=== PATIENT | female | born 2000 | race Caucasian/White ===

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

== ENCOUNTER 2021-01-05 13:07 | Emergency (ER) | payer SELFPAY ==
[2021-01-05 13:39] LABS: BILIRUBIN,URINE NEGATIVE (NEGATIVE); GLUCOSE, URINE (UA) NEGATIVE (NEGATIVE); KETONES,URINE (UA) NEGATIVE (NEGATIVE); LEUKOCYTE ESTERASE, URINE NEGATIVE (NEGATIVE); NITRITE,URINE POSITIVE (NEGATIVE); OCCULT BLOOD,URINE NEGATIVE (NEGATIVE); PH,URINE 6.5 PH (5.0-7.5); PROTEIN,URINE NEGATIVE (NEGATIVE); UROBILINOGEN,URINE 1 (NORMAL) E.U./dL (NORMAL)
[2021-01-05 13:40] LABS: CLARITY,URINE CLEAR (CLEAR)
--- NOTE | 2021-01-05 13:40 | ED Physician Documentation ---
History of Present Illness - Stated complaint Stated Complaint: FEMALE - Chief complaint Chief Complaint: UTI - History obtained from History obtained from: Patient - History of Present Illness Timing: How many days ago (3) Pain level max: 5 Pain level now: 5 - Additonal information Additional information: Patient is a 20-year-old female who presents to the emergency department stating she has had dysuria for the past 4 to 5 days. Emesis x1 yesterday. Pain in the mid to upper back bilaterally. Also right upper quadrant abdominal pain today. Worse with urination, nothing makes it better. Review of Systems Constitutional: denies: Fever, Chills Throat: denies: Sore throat Cardiac: denies: Chest pain / pressure Respiratory: denies: Cough, Hemoptysis, Wheezing : denies: Now EGA Skin: denies: Rash Musculoskeletal: denies: Neck pain, Back pain Neurologic: denies: Headache PD PAST MEDICAL HISTORY - Past Medical History Past Medical History: Yes Cardiovascular: None Respiratory: None Endocrine/Autoimmune: None GI: None : None HEENT: None Psych: Depression, Anxiety, Panic attacks Musculoskeletal: None Derm: None - Past Surgical History Past Surgical History: No - Present Medications Home Medications: Ambulatory Orders Medication Instructions Recorded Confirmed Cefdinir 300 mg PO BID #20 cap 01/05/21 Fluconazole [Diflucan] 1 tablet PO ONCE 1 Days #1 tablet 01/05/21 Ondansetron Odt [Zofran] 4 mg TL Q6H PRN #10 tablet 01/05/21 Phenazopyridine HCl [Pyridium] 200 mg PO TID PRN #6 tablet 01/05/21 - Allergies Allergies/Adverse Reactions: Allergies Allergy/AdvReac Type Severity Reaction Status Date / Time Sulfa (Sulfonamide AdvReac Hives Verified 01/05/21 13:21 Antibiotics) - Social History Does the pt smoke?: No Smoking Status: Never smoker Does the pt drink ETOH?: No Does the pt have substance abuse?: No - Immunizations Immunizations are current?: Yes PD ED PE NORMAL - Vitals Vital signs reviewed: Yes - General General: Alert and oriented X 3, No acute distress - HEENT HEENT: Moist mucous membranes - Neck Neck: Supple, no meningeal sign - Cardiac Cardiac: RRR - Respiratory Respiratory: No respiratory distress, Clear bilaterally - Abdomen Abdomen: Soft, Non distended, Other (Mild tender palpation right upper quadrant. No peritoneal signs.) - Female Female : Pt declined - Back Back: Other (Mild bilateral CVA tenderness, right greater than left) - Derm Derm: Warm and dry - Extremities Extremities: No edema - Neuro Neuro: Alert and oriented X 3 - Psych Psych: Normal mood, Normal affect Results - Vitals Vitals: Vital Signs - 24 hr 01/05/21 01/05/21 13:19 15:19 Temperature 36.6 C 36.8 C Heart Rate 97 84 Respiratory 16 16 Rate Blood Pressure 126/70 100/61 O2 Saturation 98 98 Oxygen O2 Source Room air - Labs Labs: Laboratory Tests 01/05/21 01/05/21 01/05/21 13:22 13:41 13:41 WBC 7.1 RBC 4.85 Hgb 15.3 Hct 45.9 MCV 94.6 MCH 31.5 H MCHC 33.3 RDW 12.7 Plt Count 209 MPV 11.0 H Neut # (Auto) 5.0 Lymph # (Auto) 1.6 [place] # (Auto) 0.5 Eos # (Auto) 0.1 Baso # (Auto) 0.0 Absolute Nucleated RBC 0.00 Nucleated RBC % 0.0 Sodium 136 Potassium 3.8 Chloride 104 Carbon Dioxide 23 Anion Gap 9.0 BUN 7 Creatinine 0.5 Estimated GFR (MDRD) 157 Glucose 107 H Calcium 9.2 Total Bilirubin 1.4 H AST 22 ALT 19 Alkaline Phosphatase 59 Total Protein 7.2 Albumin 4.3 Globulin 2.9 Albumin/Globulin Ratio 1.5 Lipase 31 Urine Color DARK YELLOW Urine Clarity CLEAR Urine pH 6.5 Ur Specific [place] 1.020 Urine Protein NEGATIVE Urine Glucose (UA) NEGATIVE Urine Ketones NEGATIVE Urine Occult Blood NEGATIVE Urine Nitrite POSITIVE H Urine Bilirubin NEGATIVE Urine Urobilinogen 1 (NORMAL) Ur Leukocyte Esterase NEGATIVE Urine RBC 0-5 Urine WBC 0-3 Ur Squamous Epith Cells MOD Squamous H Urine Bacteria Few Ur Microscopic Review INDICATED Urine Culture Comments NOT INDICATED Urine HCG, Qual NEGATIVE C. glabrata (PCR) C. krusei (PCR) Nano species DNA Chlam trachomat DNA PCR N.gonorrhoeae DNA (PCR) T. vaginalis (PCR) Bact Vaginosis (PCR) 01/05/21 01/05/21 13:49 13:49 WBC RBC Hgb Hct MCV MCH MCHC RDW Plt Count MPV Neut # (Auto) Lymph # (Auto) [place] # (Auto) Eos # (Auto) Baso # (Auto) Absolute Nucleated RBC Nucleated RBC % Sodium Potassium Chloride Carbon Dioxide Anion Gap BUN Creatinine Estimated GFR (MDRD) Glucose Calcium Total Bilirubin AST ALT Alkaline Phosphatase Total Protein Albumin Globulin Albumin/Globulin Ratio Lipase Urine Color Urine Clarity Urine pH Ur Specific [place] Urine Protein Urine Glucose (UA) Urine Ketones Urine Occult Blood Urine Nitrite Urine Bilirubin Urine Urobilinogen Ur Leukocyte Esterase Urine RBC Urine WBC Ur Squamous Epith Cells Urine Bacteria Ur Microscopic Review Urine Culture Comments Urine HCG, Qual C. glabrata (PCR) NEGATIVE C. krusei (PCR) NEGATIVE Nano species DNA POSITIVE A Chlam trachomat DNA PCR NEGATIVE N.gonorrhoeae DNA (PCR) NEGATIVE T. vaginalis (PCR) NEGATIVE NEGATIVE Bact Vaginosis (PCR) NEGATIVE - Rads (name of study) Right upper quadrant ultrasound Radiology: Prelim report reviewed, EMP read contemporaneously, See rad report (Prelim report from is technician. No acute abnormalities.) PD MEDICAL DECISION MAKING - ED course Complexity details: reviewed results, re-evaluated patient, considered differential, d/w patient ED course: 20-year-old female with symptoms consistent with possible pyelonephritis. Will start on antibiotics. A vaginal swab was also performed. This is positive for Nano and bacterial vaginitis. Flagyl and Diflucan were sent to the pharmacy as well. Patient is well-appearing, nontoxic. Afebrile. Denies any possibility of STD exposure. Patient counseled regarding signs and symptoms for which I believe and urgent re-evaluation would be necessary. Patient with good understanding of and agreement to plan and is comfortable going home at this time This document was made in part using voice recognition software. While efforts are made to proofread this document, sound alike and grammatical errors may occur. Departure - Departure Disposition: 01 Home, Self Care Clinical Impression: Pyelonephritis, Vaginal nano Condition: Good Instructions: ED Kidney Infec Female Follow-Up: your,doctor in 1 week if not better [Other] Prescriptions: Cefdinir 300 mg PO BID #20 cap Fluconazole [Diflucan] 1 tablet PO ONCE 1 Days #1 tablet Phenazopyridine HCl [Pyridium] 200 mg PO TID PRN #6 tablet PRN Reason: dysuria Ondansetron Odt [Zofran] 4 mg TL Q6H PRN #10 tablet PRN Reason: Nausea / Vomiting Comments: Your prescriptions were sent to [facility] in [place]. Please follow-up with your doctor for further care. Return if you worsen. Take all antibiotics until gone even if you are feeling better. If either of your swabs come back positive, we will call you and send a prescription to [facility] for you. Discharge Date/Time: 01/05/21 15:21
[2021-01-05 13:44] LABS: HCG UR QUAL NEGATIVE
[2021-01-05 13:46] LABS: BASOPHILS % (AUTO) 0.4 %; EOSINOPHILS # (AUTO) 0.1 10^3/uL (0.0-0.7); EOSINOPHILS % (AUTO) 0.8 %; HCT - HEMATOCRIT 45.9 % (37.0-47.0); HGB - HEMOGLOBIN 15.3 g/dL (12.0-16.0); LYMPHOCYTES # (AUTO) 1.6 10^3/uL (1.5-3.5); LYMPHOCYTES % (AUTO) 21.7 %; MEAN CORPUSCULAR HEMOGLOBIN 31.5 pg (27.0-31.0); MEAN CORPUSCULAR HGB CONC 33.3 g/dL (32.0-36.0); MEAN CORPUSCULAR VOLUME 94.6 fL (81.0-99.0); MONOCYTES # (AUTO) 0.5 10^3/uL (0.0-1.0); MONOCYTES % (AUTO) 6.3 %; NEUTROPHILS % (AUTO) 70.4 %; PLT - PLATELET COUNT 209 10^3/uL (130-450); RED BLOOD COUNT 4.85 10^6/uL (4.20-5.40); RED CELL DISTRIBUTION WIDTH 12.7 % (12.0-15.0); WHITE BLOOD COUNT 7.1 x10^3/uL (4.8-10.8)
[2021-01-05 13:51] LABS: RBC,URINE 0-5 /HPF (0-5); WBC,URINE 0-3 /HPF (0-5)
[2021-01-05 13:52] LABS: BACTERIA,URINE Few /HPF (None Seen); SQUAMOUS EPITHELIAL CELL,UR MOD Squamous (<= Few)
[2021-01-05 13:59] LABS: ALBUMIN 4.3 g/dL (3.2-5.5); ALBUMIN/GLOBULIN RATIO 1.5 (1.0-2.2); BILIRUBIN,TOTAL 1.4 mg/dL (0.2-1.0); CALCIUM 9.2 mg/dL (8.5-10.3); CREATININE 0.5 mg/dL (0.4-1.0); POTASSIUM 3.8 mmol/L (3.5-5.0); TOTAL PROTEIN 7.2 g/dL (6.7-8.2)
--- NOTE | 2021-01-05 14:47 | Ultrasound Report ---
PROCEDURE: Abdomen Limited INDICATIONS: RUQ pain, vomit TECHNIQUE: Real-time scanning was performed of the right upper quadrant, with image documentation. Color and pu lse Doppler interrogation was also performed of the hepatic and splenic vessels, or of the lesion of interest. COMPARISON: None. FINDINGS: Liver: Liver is normal in size and homogeneous in echotexture. Gallbladder: Is unremarkable appearance without wall thickening, pericholecystic fluid, or sonograph ic Collins sign. Biliary ducts: No intrahepatic biliary ductal dilatation. Extrahepatic bile duct is 2.5 mm in calib er. Normal biliary caliber is 6-7 mm or less, or 10 mm or less post-cholecystectomy. Spleen: Spleen is normal in size and homogeneous in echotexture. Pancreas: Visualized portions of the pancreas appear normal. Right Kidney: Right kidney is normal in size and echotexture. Right kidney measures 11.2 cm long. No hydronephrosis or nephrolithiasis. Mild prominence of the renal pelvis, likely within normal limits. No significant hydronephrosis. No solid renal masses. Miscellaneous: No free abdominal fluid. IMPRESSION: Unremarkable right upper quadrant ultrasound. Reviewed by: Devon Mock DO on 01/05/2021 1:46 PM NADIRA Approved by: Devon Mock DO on 01/05/2021 1:46 PM NADIRA Station ID: [id number]
[2021-01-05] MEDS ORDERED: cefTRIAXone 1 GM VIAL IVP STA (14:57)
[2021-01-05 15:20] VITALS: BP 100/61
[2021-01-05 15:40] LABS: BACTERIAL VAGINOSIS DNA NEGATIVE (NEGATIVE); CANDIDA GLABRATA DNA NEGATIVE (NEGATIVE); CANDIDA GROUP DNA POSITIVE (NEGATIVE); CANDIDA KRUSEI DNA NEGATIVE (NEGATIVE); TRICHOMONAS VAGINALIS DNA NEGATIVE (NEGATIVE)
[2021-01-05 16:29] LABS: CHLAMYDIA TRACHOMATIS DNA NEGATIVE (NEGATIVE); NEISSERIA GONORRHOEAE DNA NEGATIVE (NEGATIVE); TRICHOMONAS VAGINALIS DNA NEGATIVE (NEGATIVE)
== END 2021-01-05 15:21 | disposition home or self-care (01) ==
LOC: ED 13:07
DX: B37.3 Candidiasis of vulva and vagina (principal); N12 Tubulo-interstitial nephritis, not specified as acute or chronic
CPT/HCPCS: 36415; 80053; 81001; 81003; 81025; 83690; 85025; 87086; 87491; 87591; 87661; 87801; 96374; 99284

== ENCOUNTER 2022-04-24 15:00 | Outpatient (CLI) | payer MEDICAID, OTHER ==
[2022-04-24 21:34] LABS: BACTERIAL VAGINOSIS DNA NEGATIVE (NEGATIVE); CANDIDA GLABRATA DNA NEGATIVE (NEGATIVE); CANDIDA GROUP DNA NEGATIVE (NEGATIVE); CANDIDA KRUSEI DNA NEGATIVE (NEGATIVE); TRICHOMONAS VAGINALIS DNA NEGATIVE (NEGATIVE)
[2022-04-28 01:09] LABS: CHLAMYDIA TRACHOMATIS DNA NEGATIVE (NEGATIVE); NEISSERIA GONORRHOEAE DNA NEGATIVE (NEGATIVE)
== END 2022-04-24 23:59 | disposition home or self-care (01) ==
LOC: LAB 15:00
PROVIDERS: ATTEND Nurse Practitioner
DX: N89.8 Other specified noninflammatory disorders of vagina (principal); Z11.3 Encounter for screening for infections with a predominantly sexual mode of transmission
CPT/HCPCS: 81514; 87491; 87591; 87661

== ENCOUNTER 2023-01-08 13:00 | Outpatient (CLI) | payer OTHER ==
[2023-01-08 20:12] LABS: BACTERIAL VAGINOSIS DNA NEGATIVE (NEGATIVE); CANDIDA GLABRATA DNA NEGATIVE (NEGATIVE); CANDIDA GROUP DNA NEGATIVE (NEGATIVE); CANDIDA KRUSEI DNA NEGATIVE (NEGATIVE); TRICHOMONAS VAGINALIS DNA NEGATIVE (NEGATIVE)
[2023-01-08 21:21] LABS: CHLAMYDIA TRACHOMATIS DNA NEGATIVE (NEGATIVE); NEISSERIA GONORRHOEAE DNA NEGATIVE (NEGATIVE)
[2023-01-10 05:08] LABS: RPR Non Reactive (Non Reactive)
[2023-01-10 12:08] LABS: HSV 1 IGG TYPE SPEC <0.91 index (0.00-0.90); HSV 2 IGG TYPE SPEC <0.91 index (0.00-0.90)
[2023-01-11 00:07] LABS: HIV SCREEN 4TH GENERATION Non Reactive (Non Reactive)
[2023-01-11 03:07] LABS: HCV AB Non Reactive (Non Reactive)
== END 2023-01-08 13:15 | disposition home or self-care (01) ==
LOC: LAB.N 13:00
PROVIDERS: ATTEND Registered Nurse
DX: Z20.2 Contact with and (suspected) exposure to infections with a predominantly sexual mode of transmission (principal)
CPT/HCPCS: 36415; 81514; 86592; 86695; 86696; 86803; 87389; 87491; 87591; 87661